=== PATIENT | female | born 1980 | race Caucasian/White ===

== ENCOUNTER 2017-06-30 15:39 | Outpatient (CLI) | payer SELFPAY | END 2017-06-30 15:40 | disposition EMS.NT | LOC: EMS 15:39 | PROVIDERS: ATTEND Surgery | DX: R07.89 Other chest pain (principal); V49.40XA Driver injured in collision with unspecified motor vehicles in traffic accident, initial encounter; Y92.413 State road as the place of occurrence of the external cause ==

== ENCOUNTER 2017-06-30 16:37 | Emergency (ER) | payer OTHER ==
[2017-06-30 16:48] VITALS: BP 134/86
[2017-06-30] MEDS ORDERED: ACETAMINOPHEN 325 MG TABLET PO STA (17:39)
[2017-06-30] MEDS ORDERED: IBUPROFEN 400 MG TABLET PO STA (17:39)
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
--- NOTE | 2017-06-30 18:39 | XRAY Preliminary Report ---
Exam: XR CHEST 2 VIEW X-RAY IMPRESSION: No acute cardiopulmonary disease seen. [facility] SITE ID: [id number]
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
== END 2017-06-30 19:14 | disposition home or self-care (01) ==
LOC: ED 16:37
DX: S20.219A Contusion of unspecified front wall of thorax, initial encounter (principal); V43.53XA Car driver injured in collision with pick-up truck in traffic accident, initial encounter; Y92.411 Interstate highway as the place of occurrence of the external cause; F17.200 Nicotine dependence, unspecified, uncomplicated
CPT/HCPCS: 71046; 99282; 99283; A9270

== ENCOUNTER 2017-09-10 12:49 | Outpatient (CLI) | payer OTHER ==
--- NOTE | 2017-09-10 13:44 | XRAY Report ---
EXAM: CERVICAL SPINE RADIOGRAPHY EXAM DATE: 09/10/2017 01:21 PM. CLINICAL HISTORY: Neck pain COMPARISONS: None. TECHNIQUE: 3 views. FINDINGS: Alignment: Normal. No spondylolisthesis or scoliosis. Bones: The cervical vertebral bodies and posterior elements are well visualized from the skull base t hrough C7-T1. No fractures or bone lesions. Disks: Normal. Disk heights are maintained. Facets: No degenerative disease. Soft Tissues: Normal. No prevertebral soft tissue swelling. The visualized lung apices are clear. IMPRESSION: Normal cervical spine radiography. [facility] Referring Provider Line: [phone] SITE ID: [id number]
--- NOTE | 2017-09-10 13:45 | XRAY Report ---
EXAM: LUMBOSACRAL SPINE RADIOGRAPHY EXAM DATE: 09/10/2017 01:22 PM. CLINICAL HISTORY: Back pain COMPARISONS: None. TECHNIQUE: 3 views. FINDINGS: Alignment: Normal. No spondylolisthesis or scoliosis. Bones: Five [id number] lumbar vertebral bodies are present. No fractures or bone lesions. Disks: Normal. Disk heights are maintained. Facets: No degenerative changes. Sacroiliac Joints: Unremarkable. Soft Tissues: Intrauterine device projects at the region of the pelvis. IMPRESSION: Normal lumbar spine radiography. [facility] Referring Provider Line: [phone] SITE ID: [id number]
== END 2017-09-10 12:50 | disposition home or self-care (01) ==
LOC: DI 12:49
PROVIDERS: ATTEND Family Medicine
DX: M99.01 Segmental and somatic dysfunction of cervical region (principal)
CPT/HCPCS: 72040; 72100

== ENCOUNTER 2017-11-11 08:23 | Outpatient (CLI) | payer OTHER ==
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
== END 2017-11-11 08:24 | disposition home or self-care (01) ==
LOC: DI 08:23
PROVIDERS: ATTEND Family Medicine
DX: M50.21 Other cervical disc displacement, high cervical region (principal); M99.09 Segmental and somatic dysfunction of abdomen and other regions; V89.2XXD Person injured in unspecified motor-vehicle accident, traffic, subsequent encounter; M99.01 Segmental and somatic dysfunction of cervical region
CPT/HCPCS: 72141

== ENCOUNTER 2017-11-14 15:19 | Outpatient (CLI) | payer OTHER ==
--- NOTE | 2017-11-15 14:39 | MRI Report ---
Procedure Date: 11/14/2017 Accession Number: [id number] / [id number] Procedure: MRI - Lumbar Spine W/O CPT Code: FULL RESULT: EXAM: MRI LUMBAR SPINE WITHOUT CONTRAST EXAM DATE: 11/14/2017 03:20 PM. CLINICAL HISTORY: 37-year-old with persistent back pain and lower extremity radicular symptoms COMPARISON: Lumbar radiograph 09/10/2017. TECHNIQUE: Multiplanar, multisequence T1-weighted and fluid-sensitive sequences of the lumbar spine from T12 to S1 without contrast. Other: None. FINDINGS: Alignment: No scoliosis or spondylolisthesis. Spinal Canal: The conus terminates at L2 which is low-lying but within normal limits.. The conus medullaris and cauda equina are unremarkable. At S2 a left sacral Tarlov cyst is seen measuring 7 x 10 x 8 mm (cc by TRV by AP). Bone Marrow: Five [id number] lumbar vertebral bodies are assumed. No gross fractures or bone lesions. No bone marrow replacement. Disk Levels/Facets: There is bilateral facet disease beginning at L2-L3 and extending to the sacrum. T12-L1: Unremarkable. L1-L2: Unremarkable. L2-L3: Unremarkable. L3-L4: Unremarkable. L4-L5: Unremarkable. L5-S1: Unremarkable. Musculature: Normal. No edema or fatty atrophy. Other: Right kidney superior pole T2 hypertense lesion measuring up to 7 mm (series 601, image 32) that may represent renal cyst. IMPRESSION: 1. There is no significant disk protrusion or bulge seen within the lumbar spine. There is no significant spinal canal stenosis or neural foraminal narrowing of the lumbar spine. 2. At S2 a left sacral Tarlov cyst is seen measuring 7 x 10 x 8 mm (cc by TRV by AP). Comment: The following findings are so common in adults without low back pain that while we report their presence, they must be interpreted with caution and in the context of the clinical situation. (Reference Terencevik et al, Spine 2001) Prevalence of findings in patients without low back pain: Disk degeneration (any evidence): 92% Disk desiccation/T2 signal loss: 83% Disk height loss: 56% Disk bulge: 64% Disk protrusion: 32% Annular tear/high intensity zone: 38% [facility]
== END 2017-11-14 15:20 | disposition home or self-care (01) ==
LOC: DI 15:19
PROVIDERS: ATTEND Family Medicine
DX: M47.896 Other spondylosis, lumbar region (principal); M47.897 Other spondylosis, lumbosacral region; G96.19 Other disorders of meninges, not elsewhere classified
CPT/HCPCS: 72148

== ENCOUNTER 2019-12-26 07:00 | Outpatient (CLI) | payer OTHER | END 2019-12-26 23:59 | disposition home or self-care (01) | LOC: LAB.R 07:00 | PROVIDERS: ATTEND Family Medicine | DX: J06.9 Acute upper respiratory infection, unspecified (principal); Z20.828 Contact with and (suspected) exposure to other viral communicable diseases ==

== ENCOUNTER 2020-02-19 08:00 | Outpatient (CLI) | payer OTHER | END 2020-02-19 23:59 | disposition home or self-care (01) | LOC: LAB.WCP 08:00 | PROVIDERS: ATTEND Family Medicine | DX: Z11.1 Encounter for screening for respiratory tuberculosis (principal) | CPT/HCPCS: 36415; 81599; 86480 ==